=== PATIENT | female | born 2000 | race Two or more races ===

== ENCOUNTER 2023-11-28 18:02 | Emergency (ER) | payer SELFPAY ==
[~2023-11-28] VITALS: Ht 162.6 cm; Wt 65.0 kg
[2023-11-28] MEDS: SODIUM CHLORIDE 0.9% 2,000 ML IV ONE (18:39)
[2023-11-28 18:46] LABS: Basophils # (auto) 0 10 ^3/uL (0-0.2); Basophils % (auto) 0.1 % (0.0-2.0); Eosinophils # (auto) 0.2 10 ^3/uL (0-0.8); Hematocrit 37.7 % (36.0-46.0); Hemoglobin 12.4 g/dL (12.2-16.2); Mean Corpuscular Hgb Conc. 32.8 g/dL (32.0-36.0); Monocytes # (auto) 0.3 10 ^3/uL (0-1.3)
[2023-11-28 18:48] LABS: Eosinophils % (auto) 2.6 % (0.0-7.0); Lymphocytes # (auto) 3.4 10 ^3/uL (0.4-5.4); Lymphocytes % (auto) 49.3 % (10.0-50.0); Mean Corpuscular Hemoglobin 26.2 pg (28.0-32.0); Mean Corpuscular Volume 79.7 fL (80.0-100.0); Monocytes % (auto) 4.7 % (0.0-12.0); Neutrophils % (auto) 43.3 % (37.0-80.0); Nucleated Red Blood Cells % 0.7 %; Red Blood Cells 4.73 10^6/uL (4.0-5.20); White Blood Cell 6.8 10^3/uL (4.4-10.8)
[2023-11-28 19:12] LABS: Alanine Aminotransferase 121 U/L (7-40); Albumin 3.9 g/dL (3.2-4.8); Alkaline Phosphatase 121 U/L (46-116); Anion Gap 10 (5-15); Aspartate Aminotransferase 63 U/L (13-40); BUN/Creatinine Ratio 6.9 (10.0-20.0); Bilirubin, Total 0.6 mg/dL (0.2-1.0); Blood Urea Nitrogen 6 mg/dL (9-23); Calcium 8.8 mg/dL (8.7-10.4); Carbon Dioxide 21 mmol/L (20-30); Chloride 107 mmol/L (98-107); Glucose 94 mg/dL (74-106); Potassium 3.1 mmol/L (3.5-5.1); Sodium 138 mmol/L (136-145); Total Protein 6.6 g/dL (5.7-8.2)
[2023-11-28 20:52] LABS: Amphetamine Screen, Urine Neg (NEGATIVE)
[2023-11-28 20:53] LABS: Barbiturate Scree,Urine Neg (NEGATIVE); Benzodiazephine Screen, Urine Neg (NEGATIVE); Cannabinoid Screen, Urine Neg (NEGATIVE); Cocaine Screen, Urine Neg (NEGATIVE); Opiate Scree,Urine Neg (NEGATIVE); Phencyclidine Screen, Urine Neg (NEGATIVE)
[2023-11-28 21:04] LABS: Urine Bacteria FEW /hpf (None Seen); Urine Blood Negative /uL (Negative); Urine Clarity Clear (Clear); Urine Color Light-Yellow (Yellow); Urine Hyaline Cast FEW /lpf (0 - 2); Urine Mucus FEW (None Seen); Urine Protein, UAD Negative (Negative); Urine Specific Gravity 1.015 (1.001-1.035); Urine Urobilinogen Normal (Negative); Urine WBC 3 /hpf (0 - 5)
[2023-11-28 21:37] VITALS: BP 112/68; PULSE 80; RESP 16; TEMP 98; O2SAT 99
== END 2023-11-28 21:37 | disposition home or self-care (01) ==
LOC: EDBD 18:02 → ER 18:10
DX: R55 Syncope and collapse (principal); R10.2 Pelvic and perineal pain; R79.89 Other specified abnormal findings of blood chemistry
CPT/HCPCS: 36415; 70450; 80053; 80307; 81001; 84702; 85025; 93005; 96360; 96361; 99284; J7030

== ENCOUNTER 2024-11-16 18:21 | Emergency (ER) | payer BC, OTHER ==
[~2024-11-16] VITALS: Ht 154.9 cm; Wt 51.2 kg
[2024-11-16] MEDS: SODIUM CHLORIDE 0.9% 1,000 ML IV ONE (20:30)
[2024-11-16 21:08] LABS: Chloride 102 mmol/L (98-107); Potassium 3.7 mmol/L (3.5-5.1); Sodium 139 mmol/L (136-145)
[2024-11-16 21:09] LABS: Anion Gap 16 (5-15); Carbon Dioxide 21 mmol/L (20-31)
[2024-11-16 21:13] LABS: Hematocrit 41.7 % (36.0-46.0); Hemoglobin 13.6 g/dL (12.2-16.2); Mean Corpuscular Hemoglobin 26.3 pg (28.0-32.0); Mean Corpuscular Volume 80.3 fL (80.0-100.0); Nucleated Red Blood Cells % 0.1 %
[2024-11-16 21:14] LABS: BUN/Creatinine Ratio 8.1 (10.0-20.0)
[2024-11-16 21:31] LABS: Urine Amorphous Crystal FEW /hpf (None Seen); Urine Protein, UAD 1+ (Negative)
[2024-11-16 21:34] LABS: Blood Urea Nitrogen 5 mg/dL (9-23); Calcium 11.0 mg/dL (8.7-10.4); Glucose 64 mg/dL (74-106)
[2024-11-16] MEDS ORDERED: ACET500T58 PO (23:50)
[2024-11-16] MEDS ORDERED: CEPH500C PO (23:50)
--- NOTE | 2024-11-16 23:50 | ED.PDOC ---
[employer] HPI Comments 24-year-old female presents to ER with complaints of nausea/vomiting x4 days. Patient reports that she is currently 11 weeks , A0 and reports that x4 days she has been experiencing nausea/vomiting, intermittent lower back pain and "pink tinge" to urine. Reports that she was seen and evaluated urgent care for her symptoms yesterday and prescribed Zofran that she has been taking with slight relief. Patient presents to ER ambulatory on arrival, with steady gait, in no distress and reports that she has been following up with her OBGYN as directed, denying any known complications with current and denies any current pain. Denies fever, body aches, chills, abdominal/pelvic pain, back/fla nk pain, vaginal bleeding/further changes in urination or any further symptoms/complaints Chief Complaint: Nausea/Vomiting Time Seen by MD: 19:28 Primary Care Provider: UNKNOWN Reviewed Notes: Nurses Notes, Medications, Allergies Allergies: Coded Allergies: NO KNOWN ALLERGIES (Unverified , 11/28/23) Home Meds Active Scripts Acetaminophen (Acetaminophen) 500 Mg Tab, 500 MG PO Q4HPRN, #30 TAB 0 Refills Prov:CIARAN CLEVELAND 11/16/24 Cephalexin Monohydrate (Cephalexin) 500 Mg Cap, 500 MG PO QID for 7 Days, #28 CAP 0 Refills Prov:CIARAN CLEVELAND 11/16/24 Information Source: Patient Past Medical History PAST MEDICAL HISTORY: Denies Surgical History: Denies all surgeries 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 Family History Family History: Unknown Social History Smoker: Non-Smoker Alcohol: Denies ETOH Use Drugs: Denies Drug Use Lives In: Home Constitutional: denies: chills, diaphoresis, fatigue, fever, malaise, sweats, weakness, others EENTM: denies: blurred vision, double vision, ear bleeding, ear discharge, ear drainage, ear pain, ear ringing, eye pain, eye redness, hearing loss, mouth pain, mouth swelling, nasal discharge, nose bleeding, nose congestion, nose pain, photophobia, tearing, throat pain, throat swelling, voice changes, others Respiratory: denies: cough, hemoptysis, orthopnea, SOB at rest, shortness of breath, SOB with excertion, stridor, wheezing, others Cardiovascular: denies: chest pain, dizzy spells, diaphoresis, Dyspnea on exertion, edema, irregular heart beat, left arm pain, lightheadedness, palpi tations, PND, syncope, others Gastrointestinal: reports: others (As stated in HPI) Genitourinary: reports: others (As stated in HPI) Neurological: denies: dizziness, fainting, headache, left sided numbness, left sided weakness, numbness, paresthesia, pre-existing deficit, right sided numbness, right sided weakness, seizure, speech problems, tingling, tremors, weakness, others Musculoskeletal: reports: others (As stated in HPI) Integumetry: denies: bruises, change in color, change in hair/nails, dryness, laceration, lesions, lumps, rash, wounds, others Allergic/Immunocompromised: denies: Difficulty Healing, Frequent Infections, Hives, Itching, others Hematologic/Lymphatic: denies: anemia, blood clots, easy bleeding, easy bruising, swollen glands, others Endocrine: denies: excessive hunger, excessive sweating, excessive thirst, excessive urination, flushing, intolerance to cold, intolerance to heat, un explained weight gain, unexplained weight loss, others Psychiatric: denies: anxiety, bipolar disorder, depression, hopeless, panic disorder, schizophrenia, sleepless, suicidal, others Physical Exam General Appearance: No Apparent Distress HEENT: PERRL/EOMI Neck: Full Range of Motion, Non-Tender, Normal Respiratory: Chest Non-Tender, Lungs Clear, No Accessory Muscle Use, No Respiratory Distress, Normal Breath Sounds Cardiovascular: No Murmur, No Gallop, Regular Rate/Rhythm Breast Exam: Deferred Gastrointestinal: No Organomegaly, Non Tender (NO TTP TO ABDOMEN/PELVIC REGION NOTED), No Pulsatile Mass, Normal Bowel Sounds, Soft Genitalia: Deferred Pelvic: Deferred Rectal: Deferred Extremities: Normal capillary refill, Normal range of motion Musculoskeletal : Extremity Location: Back (No TTP to bilateral flanks or CVA tenderness noted bilaterally. No bony tenderness to spine appreciated) Neurologic: Alert, tobacco grader II-XII nml as Tested, No Motor Deficits, Normal Affect, Normal Mood, No Sensory Deficits Cerebellar Function: Normal Reflexes: Normal Skin: Dry, Normal Color, Warm Peripheral Pulses: 2+ Radial (R), 2+ Radial (L), 2+ Brachial (R), 2+ Brachial (L) Lymphatic: No Adenopathy Was a procedure done? Was a procedure done?: No Sedation Sedation?: No Differential Diagnosis (SMALL BOAT ENGINEER) Vaginal Bleeding: - Incomplete, Ectopic , Trauma, Vaginitis X-Ray, Labs, Meds, VS Vital Signs Date Time Temp Pulse Resp B/P (MAP) Pulse Ox O2 Delivery O2 Flow Rate FiO2 11/17/24 00:00 71 17 98 Room Air 11/17/24 00:00 98.7 71 18 117/73 (88) 98 98.7 11/16/24 20:15 98.2 74 18 112/70 (84) 99 98.2 Lab Test 11/16/24 20:44 11/16/24 20:15 Range/Units White Blood Count 12.2 H 4.4-10.8 10^3/uL Red Blood Count 5.18 4.0-5.20 10^6/uL Hemoglobin 13.6 12.2-16.2 g/dL Hematocrit 41.7 36.0-46.0 % Mean Corpuscular Volume 80.3 80.0-100.0 fL Mean Corpuscular Hemoglobin 26.3 L 28.0-32.0 pg Mean Corpuscular Hemoglobin Concent 32.7 32.0-36.0 g/dL Red Cell Distribution Width 13.3 11.8-14.3 % Platelet Count 257 140-450 10^3/uL Mean Platelet Volume 8.3 6.9-10.8 fL Neutrophils (%) (Auto) 73.4 37.0-80.0 % Lymphocytes (%) (Auto) 22.3 10.0-50.0 % Monocytes (%) (Auto) 3.7 0.0-12.0 % Eosinophils (%) (Auto) 0.3 0.0-7.0 % Basophils (%) (Auto) 0.3 0.0-2.0 % Neutrophils # (Auto) 8.9 H 1.6-8.6 10 ^3/uL Lymphocytes # (Auto) 2.7 0.4-5.4 10 ^3/uL Monocytes # (Auto) 0.4 0-1.3 10 ^3/uL Eosinophils # (Auto) 0 0-0.8 10 ^3/uL Basophils # (Auto) 0 0-0.2 10 ^3/uL Nucleated Red Blood Cells 0.1 % Sodium Level 139 136-145 mmol/L Potassium Level 3.7 3.5-5.1 mmol/L Chloride Level 102 98-107 mmol/L Carbon Dioxide Level 21 20-31 mmol/L Anion Gap 16 H 5-15 Blood Urea Nitrogen 5 L 9-23 mg/dL Creatinine 0.62 0.550-1.02 mg/dL Glomerular Filtration Rate Calc 126 >90 mL/min BUN/Creatinine Ratio 8.1 L 10.0-20.0 Serum Glucose 64 L 74-106 mg/dL Calcium Level 11.0 H 8.7-10.4 mg/dL Urine Color Light-yellow Yellow Urine Clarity Turbid H Clear Urine pH 5.5 5.0-9.0 Urine Specific [place] 1.027 1.001-1.035 Urine Protein 1+ H Negative Urine Ketones 4+ H Negative Urine Blood Negative Negative /uL Urine Nitrite Negative Negative Urine Bilirubin Negative Negative Urine Urobilinogen Normal Negative mg/dL Urine Leukocyte Esterase Trace Negative /uL Urine RBC 1 0 - 4 /hpf Urine Microscopic WBC 4 0-5 /HPF Urine Squamous Epithelial Cells Few <5 /hpf Urine Amorphous Crystals Few None Seen /hpf Urine Bacteria Few H None Seen /hpf Urine Mucus Few None Seen Urine Glucose Normal Normal mg/dL Urine Test Positive Negative Current Medications Medications (Trade) Dose Ordered Sig/Herve Route Start Time Stop Time Status Last Admin Sodium Chloride 1,000 ml @ 1,000 mls/hr Q1H ONCE IV 11/16/24 20:30 11/16/24 21:29 DC 11/17/24 00:00 CBC reviewed-WBC 12.2 BMP reviewed without any significant abnormalities Urinalysis reviewed-urine leukocyte esterase trace, urine blood negative, urine ketones 4+ Urine reviewed-positive Hep-Lock IV ordered NS 1 L IV ordered Patient had improvement in symptoms, tolerating p.o. intake well and denied any pain prior to discharge Diet education discussed Advised to follow up with PCP and OBGYN in 1-2 days Patient verbalized understanding and agreeable with current plan of care Advised to return to ER immediately if symptoms worsen Time of 1ST Reevaluation: 20:00 Reevaluation 1ST: N/A Patient Education/Counseling: Diagnosis, Treatment, Prognosis, Need For Follow Up Family Education/Counseling: No Family Present Departure 1 Departure Time of Disposition: 23:42 Impression: Primary Impression: UTI (urinary tract infection) Qualified Codes: N30.00 - Acute cystitis without hematuria Additional Impressions: Nausea/vomiting in First trimester Disposition: HOME / SELF CARE / HOMELESS Condition: Stable e-Prescriptions Acetaminophen (Acetaminophen) 500 Mg Tab 500 MG PO Q4HPRN, #30 TAB 0 Refills Prov: CIARAN CLEVELAND 11/16/24 Cephalexin Monohydrate (Cephalexin) 500 Mg Cap 500 MG PO QID for 7 Days, #28 CAP 0 Refills Prov: CIARAN CLEVELAND 11/16/24 Discharged With: Self Critical Care Note Critical Care Time?: No Stability Stability form required: No Heart Score Heart Score: Heart Score Response (Comments) Value History N/A 0 EKG N/A 0 Age N/A 0 Risk Factors N/A 0 Troponin N/A 0 Total 0 CIARAN CLEVELAND Nov 16, 2024 23:50
[2024-11-17] VITALS: BP 117/73; PULSE 71; RESP 17; TEMP 98.7; O2SAT 98
== END 2024-11-17 01:24 | disposition home or self-care (01) ==
LOC: ER 18:21
DX: O23.41 Unspecified infection of urinary tract in pregnancy, first trimester (principal); O21.9 Vomiting of pregnancy, unspecified; N39.0 Urinary tract infection, site not specified; Z3A.11 11 weeks gestation of pregnancy
CPT/HCPCS: 36415; 80048; 81001; 81025; 85025; 96360; 99283; J7030

== ENCOUNTER 2024-11-20 08:58 | Inpatient (IN) | payer BC ==
[~2024-11-20] VITALS: Ht 154.9 cm; Wt 44.8 kg
[~2024-11-20 08:58] MED LIST: ACET500T58 PO; CEPH500C PO
--- NOTE | 2024-11-20 09:21 | ECG ---
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
--- NOTE | 2024-11-20 09:46 | ED.PDOC ---
History of Present Illness HPI Comments 24-year-old female presents to the your we will being 12 weeks , A0 and with the chief complaint of nausea and vomiting. Patient was recently in the ER 4 days ago with similar symptoms as today, here is the prior HPI 24-year-old female presents to ER with complaints of nausea/vomiting x4 days. Patient reports that she is currently 11 weeks , A0 and reports that x4 days she has been experiencing nausea/vomiting, intermittent lower back pain and "pink tinge" to urine. Reports that she was seen and evaluated urgent care for her symptoms yesterday and prescribed Zofran that she has been taking with slight relief. Patient presents to ER ambulatory on arrival, with steady gait, in no distress and reports that she has been following up with her OBGYN as directed, denying any known complications with current and denies any current pain. Denies fever, body aches, chills, abdominal/pelvic pain, b ack/flank pain, vaginal bleeding/further changes in urination or any further symptoms/complaints . Patient is still has nausea and vomiting x8 days, but has chest pain with palpitations since this morning. Patient's artificial limb maker is in [place] and currently knows about the patient's symptoms. Denies chills, fever, /D, SOB, CP. No other associated symptoms, modifiers, recent injuries or sick contacts present at this time. Chief Complaint: Nausea/Vomiting Time Seen by MD: 09:30 Primary Care Provider: UNKNOWN Reviewed Notes: Nurses Notes, Medications, Allergies Allergies: Coded Allergies: NO KNOWN ALLERGIES (Unverified , 11/28/23) Home Meds Active Scripts Acetaminophen (Acetaminophen) 500 Mg Tab, 500 MG PO Q4HPRN, #30 TAB 0 Refills Prov:CIARAN CLEVELAND 11/16/24 Cephalexin Monohydrate (Cephalexin) 500 Mg Cap, 500 MG PO QID for 7 Days, #28 CAP 0 Refills Prov:CIARAN CLEVELAND 11/16/24 Information Source: Patient Mode of Arrival: Ambulatory Severity: Moderate Timing: Days Duration: Since onset, Days Prehospital treatment: None Past Medical History PAST MEDICAL HISTORY: Denies Surgical History: Denies all surgeries 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 HELPER Hx Family History Family History: Reviewed,noncontributory to illness, Unknown Social History Smoker: Non-Smoker Alcohol: Denies ETOH Use Drugs: Denies Drug Use Lives In: Home Constitutional: denies: chills, diaphoresis, fatigue, fever, malaise, sweats, weakness, others EENTM: denies: blurred vision, double vision, ear bleeding, ear discharge, ear drainage, ear pain, ear ringing, eye pain, eye redness, hearing loss, mouth pain, mouth swelling, nasal discharge, nose bleeding, nose congestion, nose pain, photophobia, tearing, throat pain, throat swelling, voice changes, others Respiratory: denies: cough, hemoptysis, orthopnea, SOB at rest, shortness of breath, SOB with excertion, stridor, wheezing, others Cardiovascular: reports: chest pain, palpitations; denies: dizzy spells, diaphoresis, Dyspnea on exertion, edema, irregular heart beat, left arm pain, lightheadedness, PND, syncope, others Gastrointestinal: reports: nausea, vomiting; denies: abdomen distended, abdominal pain, blood streaked bowels, constipated, diarrhea, dysphagia, difficulty swallowing, hematemesis, melena, poor appetite, poor fluid intake, rectal bleeding, rectal pain, others Genitourinary: denies: abnormal vagina bleeding, burning, dyspareunia, dysuria, flank pain, frequency, hematuria, incontinence, pain, , vagina discharge, urgency, others Neurological: denies: dizziness, fainting, headache, left sided numbness, left sided weakness, numbness, paresthesia, pre-existing deficit, right sided numbness, right sided weakness, seizure, speech problems, tingling, tremors, weakness, others Musculoskeletal: denies: back pain, gout, joint pain, joint swelling, muscle pa in, muscle stiffness, neck pain, others Integumetry: denies: bruises, change in color, change in hair/nails, dryness, laceration, lesions, lumps, rash, wounds, others Allergic/Immunocompromised: denies: Difficulty Healing, Frequent Infections, Hives, Itching, others Hematologic/Lymphatic: denies: anemia, blood clots, easy bleeding, easy bruising, swollen glands, others Endocrine: denies: excessive hunger, excessive sweating, excessive thirst, excessive urination, flushing, intolerance to cold, intolerance to heat, unexplained weight gain, unexplained weight loss, others Psychiatric: denies: anxiety, bipolar disorder, depression, hopeless, panic disorder, schizophrenia, sleepless, suicidal, others All Other Systems: Reviewed and Negative Physical Exam General Appearance: Mild Distress, Normal HEENT: Normal ENT Inspection, Pharynx Normal, TMs Normal, Other (dry mm) Neck: Full Range of Motion, Non-Tender, Normal, Normal Inspection Respiratory: Chest Non-Tender, Lungs Clear, No Accessory Muscle Use, No Respiratory Distress, Normal Breath Sounds Cardiovascular: No Edema, No JVD, No Murmur, No Gallop, Normal Peripheral Pulses, Tachycardia Breast Exam: Deferred Gastrointestinal: No Organomegaly, Non Tender, No Pulsatile Mass, Normal Bowel Sounds, Soft Genitalia: Deferred Pelvic: Deferred Rectal: Deferred Extremities: No calf tenderness, Normal capillary refill, Normal inspection, Normal range of motion, Non-tender, No pedal edema Musculoskeletal : Apperance: Normal Neurologic: Alert, supervisor yard II-XII nml as Tested, No Motor Deficits, Normal Affect, Normal Mood, No Sensory Deficits Cerebellar Function: Normal Reflexes: Normal Skin: Dry, Normal Color, Warm Lymphatic: No Adenopathy Was a procedure done? Was a procedure done?: No Differential Dx Considerations may include: hyperemesis gravidarum, viral syndrome, CHS, molar , dehydration, electrolyte disorders, renal failure, liver failure, preecclampsia X-Ray, Labs, Meds, VS Vital Signs Date Time Temp Pulse Resp B/P (MAP) Pulse Ox O2 Delivery O2 Flow Rate FiO2 11/20/24 12:01 68 16 98 Room Air 11/20/24 12:01 98.3 68 16 118/74 (89) 98 98.3 11/20/24 09:11 102 11/20/24 09:07 98.9 102 18 110/71 (84) 96 98.9 11/20/24 09:07 98.9 102 18 110/71 (84) 96 98.9 Lab Test 11/20/24 10:24 11/20/24 09:27 11/20/24 09:00 Range/Units Beta HCG, Quantitative 61125.9 H 1.5-4.2 mIU/mL Sodium Level Pending Potassium Level Pending Chloride Level Pending Carbon Dioxide Level Pending Anion Gap Pending Blood Urea Nitrogen Pending Creatinine Pending Glomerular Filtration Rate Calc Pending BUN/Creatinine Ratio Pending Serum Glucose Pending Calcium Level Pending Troponin I High Sensitivity 3 L </=34 ng/L Urine Color Yellow Yellow Urine Clarity Turbid H Clear Urine pH 6.0 5.0-9.0 Urine Specific [place] 1.025 1.001-1.035 Urine Protein 2+ H Negative Urine Ketones 4+ H Negative Urine Blood Negative Negative /uL Urine Nitrite Negative Negative Urine Bilirubin Negative Negative Urine Urobilinogen 2 H Negative mg/dL Urine Leukocyte Esterase Negative Negative /uL Urine RBC 2 0 - 4 /hpf Urine Microscopic WBC 4 0-5 /HPF Urine Squamous Epithelial Cells Mod <5 /hpf Urine Bacteria None seen None Seen /hpf Urine Hyaline Casts Many 0 - 2 /lpf Urine Mucus Few None Seen Urine Glucose Normal Normal mg/dL Urine Opiates Screen Neg NEGATIVE Urine Fentanyl Screen Neg NEGATIVE Urine Barbiturates Screen Neg NEGATIVE Urine Phencyclidine Screen Neg NEGATIVE Urine Amphetamines Screen Neg NEGATIVE Urine Benzodiazepines Screen Neg NEGATIVE Urine Cocaine Screen Neg NEGATIVE Urine Cannabinoids Screen Neg NEGATIVE Current Medications Medications (Trade) Dose Ordered Sig/Herve Route Start Time Stop Time Status Last Admin Sodium Chloride 1,000 ml @ 1,000 mls/hr Q1H ONCE IV 11/20/24 09:45 11/20/24 10:44 DC 11/20/24 09:48 Ondansetron HCl (Zofran) 4 mg ONCE ONCE IV 11/20/24 09:45 11/20/24 09:46 DC 11/20/24 09:48 Time of 1ST Reevaluation: 10:00 Reevaluation 1ST: Unchanged Time of 2ND Reevaluation: 12:07 Reevaluation 2ND: Improved Patient Education/Counseling: Diagnosis, Treatment, Prognosis, Need For Follow Up Family Education/Counseling: No Family Present Comments pt is feeling improved but still unable to keep oral intake down. she has ketosis, and appears clinically dehydrated. she has an IUP<12 weeks. she failed outpatient treatment and will need continual monitoring and hydration. she will be admitted SEPSIS Sepsis Screen Date sepsis recognized/suspect: Nov 20, 2024 Time Sepsis recognized/suspect: 857 Recent Procedure: No On Antibiotic Therapy: No Respiratory Rate >20: No Heart Rate >90: Yes Temp<36 C (96.8 F) or >38.3 C: No SBP <90 or MAP <65 mmHG: No New Acute Mental Status Change: No Is the patient on CPAP, BIPAP,: No Physician Orders Electrocardigram (11/20/24 10:15) Electrocardigram (11/20/24 12:15) Troponin-I Hs (11/20/24 10:15) Troponin-I Hs (11/20/24 12:15) Basic Metabolic Panel (11/20/24 09:36) Ob Ultrasound Comp Less 14wks (11/20/24 09:36) Vital Signs Date Time Temp Pulse Resp B/P (MAP) Pulse Ox O2 Delivery O2 Flow Rate FiO2 11/20/24 12:01 68 16 98 Room Air 11/20/24 12:01 98.3 68 16 118/74 (89) 98 98.3 11/20/24 09:11 102 11/20/24 09:07 98.9 102 18 110/71 (84) 96 98.9 11/20/24 09:07 98.9 102 18 110/71 (84) 96 98.9 Medications Medications Dose Ordered Sig/Herve Route Start Time Stop Time Status Last Admin Dose Admin Ondansetron HCl 4 mg ONCE ONCE IV 11/20/24 09:45 11/20/24 09:46 DC 11/20/24 09:48 Sodium Chloride 1,000 ml @ 1,000 mls/hr Q1H ONCE IV 11/20/24 09:45 11/20/24 10:44 DC 11/20/24 09:48 Departure 1 Departure Time of Disposition: 12:09 Impression: Primary Impression: Hyperemesis gravidarum Additional Impression: Dehydration Disposition: ADMITTED INPATIENT Admit to: Med Surg Condition: Serious Discharged With: Self Critical Care Note Critical Care Time?: Yes (45 min-critical care time only) Critical care comment: Due to concerns for patients condition deteriorating, the care required my highest level of attention and readiness to intervene. I assessed the patient, reviewed the medical records, ordered the appropriate tests and treatments, then reassessed for results and responsiveness. I communicated with medical personnel and consultants and formulated a plan of care. Total critical care time excludes any procedures Stability Stability form required: No I personally scribed for ADINA MAY MD ([email or web address]) on 11/20/24 at 09:46. Electronically submitted by Rodolfo Panda ([email or web address]). ADINA MAY MD Nov 20, 2024 09:46
[2024-11-20] MEDS: SODIUM CHLORIDE 0.9% 1,000 ML IV ONE (09:48)
[2024-11-20] MEDS: ONDANSETRON HCL 4 MG/2 ML VIAL IV ONE (09:48)
--- NOTE | 2024-11-20 10:24 | DVH ---
OB ULTRASOUND <14 WEEKS: HISTORY: Rule out rule out molar . TECHNIQUE: Multiple real-time grayscale sonographic images of the pelvis with duplex Doppler color f low, spectral and M-mode analysis. FINDINGS: The uterus measures 8.9 x 6.4 x 6.3 cm. The cervix is not visualized. Right ovary measures 2.8 x 2.7 x 3.2 cm with normal Doppler color flow Left ovary is not visualized. IUP single live fetus at 11 weeks 4 days average ultrasound age based on mean crown-rump length of 5. 3 cm and gestational sac size of 5.2 cm heart rate detected at 165 beats per minute. Yolk sac not visualized. Amniotic fluid Mirian-gestational space: No free fluid. IMPRESSION: 1. IUP single live fetus 11 weeks 4 days AUA without acute abnormality.
[2024-11-20 10:25] LABS: Urine Protein, UAD 2+ (Negative)
[2024-11-20 10:38] LABS: Cannabinoid Screen, Urine Neg (NEGATIVE)
[2024-11-20 10:42] LABS: Amphetamine Screen, Urine Neg (NEGATIVE); Barbiturate Scree,Urine Neg (NEGATIVE); Benzodiazephine Screen, Urine Neg (NEGATIVE); Cocaine Screen, Urine Neg (NEGATIVE); Opiate Scree,Urine Neg (NEGATIVE); Phencyclidine Screen, Urine Neg (NEGATIVE)
[2024-11-20 12:14] LABS: Chloride 102 mmol/L (98-107)
[2024-11-20 12:15] LABS: Anion Gap 18 (5-15); Potassium 3.5 mmol/L (3.5-5.1); Sodium 135 mmol/L (136-145)
[2024-11-20 12:19] LABS: Calcium 12.2 mg/dL (8.7-10.4); Carbon Dioxide 15 mmol/L (20-31)
[2024-11-20 12:21] LABS: BUN/Creatinine Ratio 7.4 (10.0-20.0); Blood Urea Nitrogen 7 mg/dL (9-23); Glucose 126 mg/dL (74-106)
--- NOTE | 2024-11-20 12:27 | DVHHP2 ---
History of Present Illness Reason for Visit: Hyperemesis gravidarum History of Present Illness The patient is a 24-year-old female 12 weeks 1 para 0 AB 0 who denies past medical history presented to [facility] ED with complaint of intractable nausea and vomiting. Patient was recently in the ER 4 days ago with similar symptoms as today. She was seen and evaluated at urgent care for her symptoms yesterday and prescribed Zofran that she has been taking with slight relief. Patient was seen and evaluated in the ED with unsteady gait, chest pain, palpitations, reports that she has been following up with her OBGYN as directed. Laboratory data shows sodium 135, potassium 3.5, BUN seven, creatinine 0.94, glucose 126, calcium 12.2, troponin 3, blood pressure 118/74, heart rate 68, temperature 98.3 F, O2 saturation 98% on room air. Obstetric ultrasound revealing IUP single live fetus 11 weeks 4 days AUA without acute abnormality. Please see medication orders section in the computer. On my assessment, patient denied chest pain, denies any known complications, no headache, no dizziness, no diaphoresis, no shortness of breath, no diarrhea, no nausea or vomiting at this moment, no fever, no chills. No other modifying factor or other associated signs and symptoms noted. Patient was admitted for further evaluation and medical management. Past Medical History Denies past medical history Past Surgical History Denies all surgeries Family History Reviewed, noncontributory to the management of this case. Past Social History The patient lives at home, denies smoking, alcohol or illicit drugs abuse. Review of Systems Constitutional: No: Fever, Chills, Sweats, Weakness, Malaise, Other Eyes: No: Pain, Vision change, Conjunctivae inflammation, Eyelid inflammation, Other, Redness ENT: No: Ear pain, Ear discharge, Nose pain, Nose discharge, Nose congestion, Mouth pain, Mouth swelling, Throat pain, Throat swelling, Other Respiratory: No: Cough, Dry, Shortness of breath, SOB with excertion, Wheezing, Hemoptysis, Pleuritic Pain, Sputum, Wheezing, Other Cardiovascular: Chest Pain, Palpitations; No: Orthopnea, Paroxysmal Noc. Dyspnea, Edema, Lt Headedness, Other Gastrointestinal: Nausea, Vomiting; No: Abdominal Pain, Diarrhea, Constipation, Melena, Hematochezia, Other Genitourinary: No Dysuria, No Frequency, No Incontinence, No Hematuria, No Retention, No Other Musculoskeletal: No: other, neck pain, shoulder pain, arm pain, back pain, hand pain, leg pain, foot pain Skin: No: Rash, Lesions, Jaundice, Bruising, Other Neurological: No: Weakness, Numbness, Incoordination, Change in speech, Conf usion, Seizures, Other Allergies: Coded Allergies: NO KNOWN ALLERGIES (Unverified , 11/28/23) Medications Current Medications Medications Dose Ordered Sig/Herve Route Start Time Stop Time Status Last Admin Dose Admin Sodium Chloride 1,000 ml @ 60 mls/hr [id number] IV 11/20/24 12:30 Ondansetron HCl 4 mg Q4HP PRN IV 11/20/24 12:30 Docusate Sodium 100 mg BIDPRN PRN PO 11/20/24 12:30 Acetaminophen 500 mg Q6HP PRN PO 11/20/24 12:30 Exam Vital Signs Vital Signs Date Time Temp Pulse Resp B/P (MAP) Pulse Ox O2 Delivery O2 Flow Rate FiO2 11/20/24 12:01 68 16 98 Room Air 11/20/24 12:01 98.3 118/74 (89) 98.3 General Appearance: Alert, Oriented X3, Cooperative, No acute distress HEENT: Atraumatic, PERRLA, EOMI, Mucous membr. moist/pink Respiratory: Clear to auscultation, Normal air movement Cardiovascular: Regular rate, Normal S1, Normal S2, No murmurs Abdominal: Normal bowel sounds, Soft, No tenderness, No hepatospenomegaly, No masses Extremities: No clubbing, No cyanosis, No edema, Normal pulses, No tenderness/swelling Skin: No rashes, No breakdown, No significant lesion Neuro: Normal gait, Normal speech, Strength at 5/5 X4 ext, Normal tone, Sensation intact, Cranial nerves 3-12 NL, Reflexes 2+ Psych/Mental Status: Mental status NL, Mood NL Labs/Xrays Labs Test 11/20/24 10:24 11/20/24 09:27 11/20/24 09:00 Range/Units Beta HCG, Quantitative 95115.9 H 1.5-4.2 mIU/mL Sodium Level 135 L 136-145 mmol/L Potassium Level 3.5 3.5-5.1 mmol/L Chloride Level 102 98-107 mmol/L Carbon Dioxide Level 15 L 20-31 mmol/L Anion Gap 18 H 5-15 Blood Urea Nitrogen 7 L 9-23 mg/dL Creatinine 0.94 # 0.550-1.02 mg/dL Glomerular Filtration Rate Calc 86 >90 mL/min BUN/Creatinine Ratio 7.4 L 10.0-20.0 Serum Glucose 126 H 74-106 mg/dL Calcium Level 12.2 H 8.7-10.4 mg/dL Troponin I High Sensitivity 3 L </=34 ng/L Urine Color Yellow Yellow Urine Clarity Turbid H Clear Urine pH 6.0 5.0-9.0 Urine Specific Welch 1.025 1.001-1.035 Urine Protein 2+ H Negative Urine Ketones 4+ H Negative Urine Blood Negative Negative /uL Urine Nitrite Negative Negative Urine Bilirubin Negative Negative Urine Urobilinogen 2 H Negative mg/dL Urine Leukocyte Esterase Negative Negative /uL Urine RBC 2 0 - 4 /hpf Urine Microscopic WBC 4 0-5 /HPF Urine Squamous Epithelial Cells Mod <5 /hpf Urine Bacteria None seen None Seen /hpf Urine Hyaline Casts Many 0 - 2 /lpf Urine Mucus Few None Seen Urine Glucose Normal Normal mg/dL Urine Opiates Screen Neg NEGATIVE Urine Fentanyl Screen Neg NEGATIVE Urine Barbiturates Screen Neg NEGATIVE Urine Phencyclidine Screen Neg NEGATIVE Urine Amphetamines Screen Neg NEGATIVE Urine Benzodiazepines Screen Neg NEGATIVE Urine Cocaine Screen Neg NEGATIVE Urine Cannabinoids Screen Neg NEGATIVE PATIENT: ENIO BRIAN ACCT: [id number] UNIT: [id number] : 2000 LOC: ER ROOM / BED: / AGE / SEX: 24 / F ADM STATUS: REG ER SERVICE [id number] ORDERING PHYSICIAN: ADINA MAY MD PROCEDURE(s): OB4US - OB ULTRASOUND COMP LESS 14WKS REASON: o ORDER NUMBER(s): [id number], ACCESSION NUMBER(s): [id number] OB ULTRASOUND <14 WEEKS: HISTORY: Rule out rule out molar . TECHNIQUE: Multiple real-time grayscale sonographic images of the pelvis with duplex Doppler color flow, spectral and M-mode analysis. FINDINGS: The uterus measures 8.9 x 6.4 x 6.3 cm. The cervix is not visualized. Right ovary measures 2.8 x 2.7 x 3.2 cm with normal Doppler color flow Left ovary is not visualized. IUP single live fetus at 11 weeks 4 days average ultrasound age based on mean crown-rump length of 5.3 cm and gestational sac size of 5.2 cm heart rate detected at 165 beats per minute. Yolk sac not visualized. Amniotic fluid Mirian-gestational space: No free fluid. IMPRESSION: 1. IUP single live fetus 11 weeks 4 days AUA without acute abnormality. SEPSIS Sepsis Screen Date sepsis recognized/suspect: Nov 20, 2024 Time Sepsis recognized/suspect: 857 Recent Procedure: No On Antibiotic Therapy: No Respiratory Rate >20: No Heart Rate >90: Yes Temp<36 C (96.8 F) or >38.3 C: No SBP <90 or MAP <65 mmHG: No New Acute Mental Status Change: No Is the patient on CPAP, BIPAP,: No Physician Orders Electrocardigram (11/20/24 10:15) Electrocardigram (11/20/24 12:15) Troponin-I Hs (11/20/24 10:15) Troponin-I Hs (11/20/24 12:15) Ob Ultrasound Comp Less 14wks (11/20/24 09:36) * Management Intern Consultation (11/20/24 12:10) Allergies (11/20/24 12:20) Code Status (11/20/24 12:20) Sodium Chloride 0.9% (11/20/24 12:30) Oxygen Per Hour (11/20/24 12:20) Ondansetron Hcl (Zofran) (11/20/24 12:30) Docusate Sodium Capsule (Colace Capsule) (11/20/24 12:30) Fall Risk Precautions In Place QSHIFT (11/20/24 12:20) Complete Blood Count (11/21/24 04:00) Comprehensive Metabolic Panel (11/21/24 04:00) Condition: Serious (11/20/24 12:20) Acetaminophen Tablet (Tylenol Tablet) (11/20/24 12:30) Clear Liq Diet (11/20/24 Lunch) Maintain Bed Rest (11/20/24 12:20) Sequential Compression Device (11/20/24 ) Vital Signs Date Time Temp Pulse Resp B/P (MAP) Pulse Ox O2 Delivery O2 Flow Rate FiO2 11/20/24 12:01 68 16 98 Room Air 11/20/24 12:01 98.3 68 16 118/74 (89) 98 98.3 11/20/24 09:11 102 11/20/24 09:07 98.9 102 18 110/71 (84) 96 98.9 11/20/24 09:07 98.9 102 18 110/71 (84) 96 98.9 Medications Medications Dose Ordered Sig/Herve Route Start Time Stop Time Status Last Admin Dose Admin Ondansetron HCl 4 mg ONCE ONCE IV 11/20/24 09:45 11/20/24 09:46 DC 11/20/24 09:48 4 MG Sodium Chloride 1,000 ml @ 1,000 mls/hr Q1H ONCE IV 11/20/24 09:45 11/20/24 10:44 DC 11/20/24 09:48 1,000 MLS/HR Assessment/Plan Assessment/Plan Hyperemesis gravidarum Dehydration 1st trimester of Plan 1. Admit to telemetry unit 2. Breathing treatment 3. Pain control management 4. Management of fluids and electrolytes 5. Consultation for OBGYN 6. Diagnostic tests obstetric ultrasound 7. DVT prophylaxis-on SCDs 8. Repeat labs CBC, CMP in a.m. 9. Continue with current medical management 10. Treatment plan discussed with patient and RN. Patient verbalized understanding. Plan discussed with: Patient, Other (RN) My Orders Orders - JACINDA HONG DNP Procedure Category Date Status Time Allergies NOBLE 11/20/24 In Process 12:20 Code Status CODE 11/20/24 Transmitted 12:20 Sodium Chloride 0.9% PHA 11/20/24 Logged 12:30 Oxygen Per Hour RT 11/20/24 Transmitted 12:20 Ondansetron Hcl PHA 11/20/24 Logged (Zofran) 12:30 Docusate Sodium PHA 11/20/24 Logged Capsule (Colace 12:30 Fall Risk Precautions NOBLE 11/20/[address] 12:20 Complete Blood Count LAB 11/21/24 Verified 04:00 Comprehensive LAB 11/21/24 Verified Metabolic Panel 04:00 Condition: Serious NOBLE 11/20/24 In Process 12:20 Acetaminophen Tablet PHA 11/20/24 Logged (Tylenol Tablet) 12:30 Clear Liq Diet DIET 11/20/24 Transmitted Lunch Maintain Bed Rest NOBLE 11/20/24 In Process 12:20 Sequential NOBLE 11/20/24 In Process Compression Device Problem List: (1) Hyperemesis gravidarum (2) Dehydration (3) First trimester Date of Service: Nov 20, 2024 Billing Provider: JACINDA HONG DNP Common Visit Codes: [id number] INP/OBS CARE (HIGH) JACINDA HONG DNP Nov 20, 2024 12:27
[2024-11-20] MEDS ORDERED: NITROGLYCERIN 0.4 MG SL TAB SL PRN (12:30)
[2024-11-20] MEDS ORDERED: DOCUSATE SOD 100 MG CAP PO PRN (12:30)
[2024-11-20] MEDS ORDERED: MORPHINE SULFATE INJ 2 MG/ml SYRG IV PRN (12:30)
[2024-11-20] MEDS: SODIUM CHLORIDE 0.9% 1,000 ML IV SCH (12:48)
[2024-11-20 13:45] VITALS: BP 128/76; PULSE 78; PULSE 82; RESP 16; RESP 17; TEMP 98.2; O2SAT 100; O2SAT 98
[2024-11-20 17:26] VITALS: BP 104/68; PULSE 77; RESP 16; TEMP 99.9; O2SAT 100
[2024-11-20 20:28] VITALS: BP 118/68; PULSE 84; RESP 15; TEMP 97.9; O2SAT 100
[2024-11-20 21:11] VITALS: BP 129/91; PULSE 82; RESP 17; TEMP 97.1; O2SAT 100
--- NOTE | 2024-11-20 21:46 | DVHINCON2 ---
Date of service: Nov 20, 2024 Referring Physician ER / Hospitalist Reason for Consultation First Tri Hyperemesis Gravidarum, dehydration , malnutrition History of Present Illness First Tri Past Medical History lnone Past Surgical History none Family History non contributory Social History non contributory Patient Family History: Hypertension G8 MOTHER Allergies: Coded Allergies: NO KNOWN ALLERGIES (Unverified , 11/28/23) Home Meds Active Scripts Acetaminophen (Acetaminophen) 500 Mg Tab, 500 MG PO Q4HPRN, #30 TAB 0 Refills Prov:CIARAN CLEVELAND 11/16/24 Cephalexin Monohydrate (Cephalexin) 500 Mg Cap, 500 MG PO QID for 7 Days, #28 CAP 0 Refills Prov:CIARAN CLEVELAND 11/16/24 Current Medications Current Medications Medications (Trade) Dose Ordered Sig/Herve Route PRN Reason Start Time Stop Time Status Last Admin Sodium Chloride 1,000 ml @ 60 mls/hr [id number] IV 11/20/24 12:30 11/20/24 12:48 Ondansetron HCl (Zofran) 4 mg Q4HP PRN IV NAUSEA / VOMITING 11/20/24 12:30 Docusate Sodium (Colace Capsule) 100 mg BIDPRN PRN PO FOR CONSTIPATION 11/20/24 12:30 Acetaminophen (Tylenol Tablet) 500 mg Q6HP PRN PO PAIN SCALE 1-3 OR TEMP>100.4 11/20/24 12:30 Nitroglycerin (Ntrostat Sublingual) 0.4 mg Q5MINP PRN SL FOR CHEST PAIN 11/20/24 12:30 Morphine Sulfate 2 mg Q30M PRN IV FOR CHEST PAIN 11/20/24 12:30 Review of Systems Constitutional: no fever, chill, weight loss HEENT: no eye pain, no hearing loss, no oral lesion, no scleral icterus Heart: no chest pain, no chest pressure Lung: no cough, no dyspnea with exertion Abdomen: see HPI : no pain with urination, normal appearing urine Musculoskeletal: no joint pain, no muscle pain Neurological: no seizure, no loss of sensation, no weakness in extremities Pysch: no depression, no anxiety Derm: no rash, no jaundice Vital Signs Vital Signs Date Time Temp Pulse Resp B/P (MAP) Pulse Ox O2 Delivery O2 Flow Rate FiO2 11/20/24 20:28 97.9 84 15 118/68 (85) 100 97.9 11/20/24 12:01 Room Air Physical Exam SKIN: lip dry. HEENT: pearla NECK: supple CARDIAC: RRR PULMONARY: CTA ABDOMEN: Soft no peritoneal signs MUSCULOSKELETAL: nl NEURO: aao x3 Labs/Diagnostic Data Labs Test 11/20/24 13:26 11/20/24 10:24 11/20/24 09:27 11/20/24 09:00 Range/Units Troponin I High Sensitivity 4 </=34 ng/L Beta HCG, Quantitative 19542.9 H 1.5-4.2 mIU/mL Sodium Level 135 L 136-145 mmol/L Potassium Level 3.5 3.5-5.1 mmol/L Chloride Level 102 98-107 mmol/L Carbon Dioxide Level 15 L 20-31 mmol/L Anion Gap 18 H 5-15 Blood Urea Nitrogen 7 L 9-23 mg/dL Creatinine 0.94 # 0.550-1.02 mg/dL Glomerular Filtration Rate Calc 86 >90 mL/min BUN/Creatinine Ratio 7.4 L 10.0-20.0 Serum Glucose 126 H 74-106 mg/dL Calcium Level 12.2 H 8.7-10.4 mg/dL Urine Color Yellow Yellow Urine Clarity Turbid H Clear Urine pH 6.0 5.0-9.0 Urine Specific [place] 1.025 1.001-1.035 Urine Protein 2+ H Negative Urine Ketones 4+ H Negative Urine Blood Negative Negative /uL Urine Nitrite Negative Negative Urine Bilirubin Negative Negative Urine Urobilinogen 2 H Negative mg/dL Urine Leukocyte Esterase Negative Negative /uL Urine RBC 2 0 - 4 /hpf Urine Microscopic WBC 4 0-5 /HPF Urine Squamous Epithelial Cells Mod <5 /hpf Urine Bacteria None seen None Seen /hpf Urine Hyaline Casts Many 0 - 2 /lpf Urine Mucus Few None Seen Urine Glucose Normal Normal mg/dL Urine Opiates Screen Neg NEGATIVE Urine Fentanyl Screen Neg NEGATIVE Urine Barbiturates Screen Neg NEGATIVE Urine Phencyclidine Screen Neg NEGATIVE Urine Amphetamines Screen Neg NEGATIVE Urine Benzodiazepines Screen Neg NEGATIVE Urine Cocaine Screen Neg NEGATIVE Urine Cannabinoids Screen Neg NEGATIVE Primary Diagnosis Hyperemeses, dehydration, 11+ wks Plan Recommend NPO 12hrs, Zofran 4 mg q 6hrs scheduled not prn, IV LR 125 /hr continuous. After twelve hrs introduce ice and clear liquids , nibble on saltine crackers as tolerated. As she improves advance diet to bland... Plan discussed with: Patient Date of Service: Nov 20, 2024 Billing Provider: CHRIS LUJAN DO Common Visit Codes: 69488-LIX/OBS DISCH DAY <30MIN Consultation Codes: [id number] CONSULT <35MIN CHRIS LUJAN DO Nov 20, 2024 21:46
[2024-11-20] MEDS: ONDANSETRON HCL 4 MG/2 ML VIAL IV PRN (22:06)
[2024-11-20] MEDS: ACETAMINOPHEN 325 MG TAB PO PRN (22:06)
[2024-11-21] VITALS (8 sets, daily range): BP systolic 106–127; BP diastolic 68–84; PULSE 71–87; RESP 15–17; TEMP 96.8–97.6; O2SAT 93–100
[2024-11-21] MEDS: METOCLOPRAMIDE HCL 5MG/ml INJ 2ml VIAL IV ONE (00:35)
[2024-11-21 06:23] LABS: Hematocrit 36.2 % (36.0-46.0); Hemoglobin 12.4 g/dL (12.2-16.2); Mean Corpuscular Hemoglobin 26.4 pg (28.0-32.0); Mean Corpuscular Volume 77.2 fL (80.0-100.0); Nucleated Red Blood Cells % 0.0 %
[2024-11-21 06:35] LABS: Albumin 4.3 g/dL (3.2-4.8); Alkaline Phosphatase 57 U/L (46-116); Anion Gap 14 (5-15); Calcium 9.0 mg/dL (8.7-10.4); Chloride 106 mmol/L (98-107); Glucose 103 mg/dL (74-106); Sodium 137 mmol/L (136-145); Total Protein 6.5 g/dL (5.7-8.2)
[2024-11-21 06:36] LABS: Bilirubin, Total 1.2 mg/dL (0.2-1.0)
[2024-11-21 06:37] LABS: Alanine Aminotransferase 128 U/L (7-40); BUN/Creatinine Ratio 10.0 (10.0-20.0); Blood Urea Nitrogen < 5 mg/dL (9-23); Carbon Dioxide 17 mmol/L (20-31); Potassium 2.8 mmol/L (3.5-5.1)
[2024-11-21 08:05] LABS: Magnesium 1.9 mg/dL (1.6-2.6)
[2024-11-21] MEDS: POTASSIUM CHL 20MEQ/100ML 100 ML IV SCH (09:26)
[2024-11-21] MEDS: METOCLOPRAMIDE HCL 5MG/ml INJ 2ml VIAL IV PRN (15:38)
[2024-11-21] MEDS: POTASSIUM CHL 20 Meq TABLET PO ONE (15:42)
--- NOTE | 2024-11-21 15:50 | DVHPN2 ---
Chief Complaints Patient reports: No new complaints, Feels better Nursing reports: No new complaints Objective Vitals Vital Signs Date Time Temp Pulse Resp B/P (MAP) Pulse Ox O2 Delivery O2 Flow Rate FiO2 11/21/24 12:48 97.2 84 16 122/83 (96) 100 97.2 11/21/24 08:00 Room Air* 0 21 Medications Current Medications Medications (Trade) Dose Ordered Sig/Herve Route PRN Reason Start Time Stop Time Status Last Admin Metoclopramide HCl (Reglan Injection) 10 mg Q8HPRN PRN IV NAUSEA / VOMITING 11/21/24 10:45 11/21/24 15:38 Others shabnam vag bleeding Studies Laboratory Tests 11/21/24 13:09 11/21/24 05:23 Test 11/21/24 05:23 Range/Units Serum Glucose 103 74-106 mg/dL Ass/Plan Assessment hyperemesis gravidum Plan cont with antiemetics and ivf pt was offered our care services supportive care Visit Coding OBGYN Date of Service: Nov 21, 2024 Billing Provider: RENATE EVANS DO SENIOR SALES ASSISTANT Common Visit Codes: [id number] OBS CARE (HIGH) SENIOR SALES ASSISTANT Consultation Codes: [id number] CONSULT <40MIN RENATE EVANS DO Nov 21, 2024 15:50
[2024-11-22] VITALS (8 sets, daily range): BP systolic 106–118; BP diastolic 64–72; PULSE 55–82; RESP 17–20; TEMP 97.2–100.1; O2SAT 98–100
[2024-11-22] MEDS ORDERED: METO-281 PO (12:09)
--- NOTE | 2024-11-22 13:54 | DVHPN2 ---
Chief Complaints Patient reports: No new complaints, Feels better, Other (some vomiting) Nursing reports: No new complaints Objective Vitals Vital Signs Date Time Temp Pulse Resp B/P (MAP) Pulse Ox O2 Delivery O2 Flow Rate FiO2 11/22/24 13:00 97.4 55 18 113/70 (84) 100 97.4 11/22/24 08:00 Room Air* 0 21 General: Normal Lungs: Normal Cardiovascular: Normal Abdominal: Soft Extremities: Normal Studies Laboratory Tests 11/21/24 13:09 11/21/24 05:23 Test 11/21/24 05:23 Range/Units Serum Glucose 103 74-106 mg/dL Ass/Plan Assessment hyperemesis gravidum still vomiting Plan cont with ivf ,advance diet Visit Coding OBGYN Date of Service: Nov 22, 2024 Billing Provider: RENATE EVANS DO [employer] Common Visit Codes: [id number] INP/OBS CARE(HIGH) [facility] [employer] Consultation Codes: [id number] CONSULT <20MIN, 85362-[id number] CONSULT <55MIN RENATE EVANS DO Nov 22, 2024 13:54
[2024-11-23 01:18] VITALS: BP 110/76; PULSE 71; RESP 16; TEMP 97.2; O2SAT 99
[2024-11-23 05:00] VITALS: BP 103/66; PULSE 74; RESP 20; TEMP 98.3; O2SAT 100
--- NOTE | 2024-11-23 05:05 | DVHPN2 ---
Chief Complaints Patient reports: No new complaints, Feels better, Other (some vomiting) Nursing reports: No new complaints Objective Vitals Vital Signs Date Time Temp Pulse Resp B/P (MAP) Pulse Ox O2 Delivery O2 Flow Rate FiO2 11/23/24 01:18 97.2 71 16 110/76 (87) 99 97.2 11/22/24 20:00 Room Air* 0 21 General: Normal Lungs: Normal Cardiovascular: Normal Abdominal: Soft Extremities: Normal Studies Laboratory Tests 11/21/24 13:09 11/21/24 05:23 Test 11/21/24 05:23 Range/Units Serum Glucose 103 74-106 mg/dL Ass/Plan Assessment hyperemesis gravidum improved Plan dc home fu 1wk with our office Visit Coding OBGYN Date of Service: Nov 23, 2024 Billing Provider: RENATE EVANS DO OPERATION RESEARCH ANALYST Common Visit Codes: [id number] INP/OBS CARE(HIGH) RENATE EVANS DO Nov 23, 2024 05:05
--- NOTE | 2024-11-23 05:06 | DVHDS2 ---
Physician Discharge Progress N Final Diagnosis: hyperemesis gravidum improved dehydration improved Operations or Procedures: Operations or Procedures ivf,iv antiemetics Condition on Discharge: Good Disposition: Home Discharge Instructions: Diet: Regular Activity: No Restrictions, As Tolerated Medications: reglan Follow Up Care: Specialist: 1w Discharge Statement: "Patient was advised to return to the ER or call 911 if any headaches, dizziness, shortness of breath, chest pain, abdominal pain, bleeding, fevers, or worsening of medical condition. Patient was counseled about treatment plan, medications, possible side effects, patientverbalized understanding. All questions were answered to the best of my ability. This discharge took greater then 30 minutes in planning, reviewing documentation, counseling the patient, and discussing with other team members." Visit Coding OBGYN Date of Service: Nov 23, 2024 Billing Provider: RENATE EVANS DO AIRCRAFT ENGINEER Common Visit Codes: [id number] INP/OBS CARE (MOD), 74537-KVK/OBS DISCH DAY >30MIN RENATE EVANS DO Nov 23, 2024 05:06
[2024-11-23] MEDS ORDERED: METO-281 PO (05:07)
[2024-11-23 06:33] LABS: Albumin 3.8 g/dL (3.2-4.8); Alkaline Phosphatase 51 U/L (46-116); Anion Gap 10 (5-15); Calcium 9.3 mg/dL (8.7-10.4); Carbon Dioxide 24 mmol/L (20-31); Chloride 103 mmol/L (98-107); Sodium 137 mmol/L (136-145); Total Protein 5.7 g/dL (5.7-8.2)
[2024-11-23 06:34] LABS: Bilirubin, Total 0.7 mg/dL (0.2-1.0)
[2024-11-23 06:36] LABS: Alanine Aminotransferase 129 U/L (7-40); BUN/Creatinine Ratio 10.6 (10.0-20.0); Blood Urea Nitrogen < 5 mg/dL (9-23)
[2024-11-23 06:39] LABS: Potassium 2.4 mmol/L (3.5-5.1)
[2024-11-23 07:03] LABS: Glucose 82 mg/dL (74-106)
[2024-11-23] MEDS: POTASSIUM CHL 20 Meq TABLET PO SCH (07:13)
[2024-11-23 09:00] VITALS: BP 113/69; PULSE 79; RESP 16; TEMP 98; O2SAT 99
== END 2024-11-23 11:00 | disposition home or self-care (01) | DRG 833 ==
LOC: ER 08:58 → OVERFLOW 12:26 → TELE-CENTR 21:11
PROVIDERS: ADMIT Obstetrics & Gynecology; ATTEND Obstetrics & Gynecology
DX: O21.1 Hyperemesis gravidarum with metabolic disturbance (principal); O99.281 Endocrine, nutritional and metabolic diseases complicating pregnancy, first trimester; Z3A.12 12 weeks gestation of pregnancy
CPT/HCPCS: 36415; 76801; 80048; 80053; 80307; 81001; 83735; 84100; 84132; 84484; 84702; 85025; 86901; 93005; 96361; 96374; 99291; G0378; J2405; J3480

== ENCOUNTER 2024-12-17 09:41 | Emergency (ER) | payer BC ==
[~2024-12-17] VITALS: Ht 154.9 cm; Wt 50.0 kg
[~2024-12-17 09:41] MED LIST changes: +METO-281 PO
--- NOTE | 2024-12-17 10:15 | ED.PDOC ---
GI ASSESSMENT HPI Comments 24 y/o F, presents to the ED for CC of nausea/vomiting. Patient states, she has been experiencing symptoms of nausea and vomiting onset, [id number] ago. Patient reports, that she is approximately x16 weeks . Patient endorses, being seen at [facility] for SS and being prescribed Zofran, Reglan, and suppositories which have provided no relief. Patient denies hematemesis, abdominal pain, abdominal cramping, fever, or diarrhea. No other symptoms or modifying factors present at this time. Chief Complaint: Nausea/Vomiting Time Seen by MD: 10:10 Primary Care Provider: UNKNOWN Reviewed Notes: Nurses Notes, Medications, Allergies Allergies: Coded Allergies: NO KNOWN ALLERGIES (Unverified , 11/28/23) Home Meds Active Scripts Metoclopramide Hcl (Reglan) 10 Mg Tab, 10 MG PO Q8HPRN PRN for 20 Days, #60 TAB Prov:RENATE EVANS DO 11/23/24 Metoclopramide Hcl (Reglan) 10 Mg Tab, 10 MG PO every 8 hours PRN, #30 TAB 1 Refill Prov:KYLER HAIR BSN 11/22/24 Acetaminophen (Acetaminophen) 500 Mg Tab, 500 MG PO Q4HPRN, #30 TAB 0 Refills Prov:CIARAN CLEVELAND 11/16/24 Cephalexin Monohydrate (Cephalexin) 500 Mg Cap, 500 MG PO QID for 7 Days, #28 CAP 0 Refills Prov:CIARAN CLEVELAND 11/16/24 Information Source: Patient Mode of Arrival: Ambulatory Timing: Weeks Duration: Since onset Prehospital treatment: None Quality: None Vomitus: Watery Stool: Normal Severity: Moderate Recent: None Recent Hx of: None Pain Location: None Modifying Factors: Nothing Associated sign and symptoms: Nausea, Vomiting Past Medical History PAST MEDICAL HISTORY: Denies Surgical History: Denies all surgeries NURSING ASSOC History: Denies all NURSING ASSOC Hx Family History Family History: Reviewed,noncontributory to illness, Unknown Social History Smoker: Non-Smoker Alcohol: Denies ETOH Use Drugs: Denies Drug Use Lives In: Home Constitutional: denies: chills, diaphoresis, fatigue, fever, malaise, sweats, weakness, others EENTM: denies: blurred vision, double vision, ear bleeding, ear discharge, ear drainage, ear pain, ear ringing, eye pain, eye redness, hearing loss, mouth pain, mouth swelling, nasal discharge, nose bleeding, nose congestion, nose pain, photophobia, tearing, throat pain, throat swelling, voice changes, others Respiratory: denies: cough, hemoptysis, orthopnea, SOB at rest, shortness of breath, SOB with excertion, stridor, wheezing, others Cardiovascular: denies: chest pain, dizzy spells, diaphoresis, Dyspnea on exertion, edema, irregular heart beat, left arm pain, lightheadedness, palpitations, PND, syncope, others Gastrointestinal: reports: nausea, vomiting; denies: abdomen distended, abdominal pain, blood streaked bowels, constipated, diarrhea, dysphagia, difficulty swallowing, hematemesis, melena, poor appetite, poor fluid intake, rectal bleeding, rectal pain, others Genitourinary: reports: ; denies: abnormal vagina bleeding, burning, dyspareunia, dysuria, flank pain, frequency, hematuria, incontinence, pain, vagina discharge, urgency, others Neurological: denies: dizziness, fainting, headache, left sided numbness, left sided weakness, numbness, paresthesia, pre-existing deficit, right sided numbness, right sided weakness, seizure, speech problems, tingling, tremors, weakness, others Musculoskeletal: denies: back pain, gout, joint pain, joint swelling, muscle pain, muscle stiffness, neck pain, others Integumetry: denies: bruises, change in color, change in hair/nails, dryness, laceration, lesions, lumps, rash, wounds, others Allergic/Immunocompromised: denies: Difficulty Healing, Frequent Infections, Hives, Itching, others Hematologic/Lymphatic: denies: anemia, blood clots, easy bleeding, easy bruising, swollen glands, others Endocrine: denies: excessive hunger, excessive sweating, excessive thirst, excessive urination, flushing, intolerance to cold, intolerance to heat, unexplained weight gain, unexplained weight loss, others Psychiatric: denies: anxiety, bipolar disorder, depression, hopeless, panic disorder, schizophrenia, sleepless, suicidal, others All Other Systems: Reviewed and Negative Physical Exam General Appearance: Moderate Distress HEENT: Normal ENT Inspection, Pharynx Normal, TMs Normal Neck: Full Range of Motion, Non-Tender, Normal, Normal Inspection Respiratory: Chest Non-Tender, Lungs Clear, No Accessory Muscle Use, No Respiratory Distress, Normal Breath Sounds Cardiovascular: No Edema, No JVD, No Murmur, No Gallop, Normal Peripheral Pulses, Regular Rate/Rhythm Breast Exam: Deferred Gastrointestinal: No Organomegaly, Non Tender, No Pulsatile Mass, Normal Bowel Sounds, Soft Genitalia: Deferred Pelvic: Deferred Rectal: Deferred Extremities: No calf tenderness, Normal capillary refill, Normal inspection, Normal range of motion, Non-tender, No pedal edema Musculoskeletal : Apperance: Normal Neurologic: Alert, financial advisor trainee II-XII nml as Tested, No Motor Deficits, Normal Affect, Normal Mood, No Sensory Deficits Cerebellar Function: Normal Reflexes: Normal Skin: Dry, Normal Color, Warm Peripheral Pulses: 3+ Radial (R), 3+ Radial (L) Lymphatic: No Adenopathy Was a procedure done? Was a procedure done?: No GI differential Dx Differential Diagnosis: Constipation, Diverticular disease, Esophagitis, Gastritis/PUD, Gastroenteritis, , Bacterial, Viral X-Ray, Labs, Meds, VS Vital Signs Date Time Temp Pulse Resp B/P (MAP) Pulse Ox O2 Delivery O2 Flow Rate FiO2 12/17/24 12:05 97.3 96 18 125/81 (96) 98 97.3 12/17/24 12:05 96 18 98 Room Air 12/17/24 09:42 97.5 110 16 134/91 98 97.5 Lab Test 12/17/24 11:50 Range/Units Beta HCG, Quantitative 66447.7 H 1.5-4.2 mIU/mL Current Medications Medications (Trade) Dose Ordered Sig/Herve Route Start Time Stop Time Status Last Admin Sodium Chloride 1,000 ml @ 1,000 mls/hr Q1H ONCE IV 12/17/24 11:30 12/17/24 12:29 DC 12/17/24 11:30 Ondansetron HCl (Zofran) 4 mg ONCE ONCE IV 12/17/24 11:30 12/17/24 11:31 DC 12/17/24 12:[address] [address] Ph: [phone] DIAGNOSTIC IMAGING Diagnostic Imaging Report : [id number] Signed PATIENT: ENOI BRIAN ACCT: [id number] UNIT: [id number] : 2000 LOC: ER ROOM / BED: / AGE / SEX: 24 / F ADM STATUS: REG ER SERVICE 1120 ORDERING PHYSICIAN: ADONAY HAUSER MD PROCEDURE(s): OBUS - OB ULTRASOUND COMP GTR 14 WKS REASON: vomiting ORDER NUMBER(s): [id number], ACCESSION NUMBER(s): [id number] LIMITED OB ULTRASOUND > 14 WKS: HISTORY: vomiting TECHNIQUE: Multiple real-time grayscale images of the gravid uterus with duplex Doppler color flow and M-mode spectral analysis. COMPARISON: US OB ULTRASOUND COMP LESS 14WKS on DOS: 11/20/24 FINDINGS: IUP single live fetus at 15 weeks 4 days based on composite averages of the BPD, head circumference, abdominal circumference and femur length. Estimated weight 134.16 grams. heart rate 137 beats per minute. Amniotic fluid is grossly adequate with MVP 2.6 cm Cervix is not visualized. Breech presentation Grade 1 placenta without previa or abruption, in anterior position. IMPRESSION: IUP single live fetus at 15 weeks 4 days AUA corresponding to an JAY of 06/06/2025. ATED BY: VIKASH ARGUELLO DO DICTATED DATE/TIME: 12/17/24 143 SIGNED BY: VIKASH ARGUELLO DO SIGNED DATE/TIME: 12/17/24 143 CC: Patient alert. Complaining of nausea. Vitals stable. Answering questions. Establish intravenous access. Was given fluids. She was just at [facility]. Watched her in the ER for many hours. No sign of any distress. Ultrasound does reveal normal . No urinary symptoms. No bleeding. No leg swelling. No shortness a breath. No chest pain. Explained to the patient. Was told to follow up with her OBGYN. Was told to come back if there is any problem. Time of 1ST Reevaluation: 10:40 Reevaluation 1ST: Unchanged Patient Education/Counseling: Diagnosis, Treatment Family Education/Counseling: No Family Present SEPSIS Sepsis Screen Date sepsis recognized/suspect: Dec 17, 2024 Time Sepsis recognized/suspect: 0945 Recent Procedure: No On Antibiotic Therapy: No Respiratory Rate >20: No Heart Rate >90: Yes Temp<36 C (96.8 F) or >38.3 C: No SBP <90 or MAP <65 mmHG: No New Acute Mental Status Change: No Is the patient on CPAP, BIPAP,: No Physician Orders Ob Ultrasound Comp Gtr 14 Wks (12/17/24 11:20) Vital Signs Date Time Temp Pulse Resp B/P (MAP) Pulse Ox O2 Delivery O2 Flow Rate FiO2 12/17/24 12:05 97.3 96 18 125/81 (96) 98 97.3 12/17/24 12:05 96 18 98 Room Air 12/17/24 09:42 97.5 110 16 134/91 98 97.5 Medications Medications Dose Ordered Sig/Herve Route Start Time Stop Time Status Last Admin Dose Admin Ondansetron HCl 4 mg ONCE ONCE IV 12/17/24 11:30 12/17/24 11:31 DC 12/17/24 12:13 Sodium Chloride 1,000 ml @ 1,000 mls/hr Q1H ONCE IV 12/17/24 11:30 12/17/24 12:29 DC 12/17/24 11:30 Departure 1 Departure Time of Disposition: 15:03 Impression: Primary Impression: Nausea/vomiting in Disposition: 01 HOME / SELF CARE / HOMELESS Condition: Good Discharged With: Self Critical Care Note Critical Care Time?: No Stability Stability form required: No Heart Score Heart Score: Heart Score Response (Comments) Value History N/A 0 EKG N/A 0 Age N/A 0 Risk Factors N/A 0 Troponin N/A 0 Total 0 I personally scribed for ADONAY HAUSER MD ([email or web address]) on 12/17/24 at 10:15. Electronically submitted by Jud Diaz ([facility] [facility]). I personally scribed for ADONAY HAUSER MD ([email or web address]) on 12/17/24 at 10:52. Electronically submitted by Jud Diaz ([employer]). I personally scribed for ADONAY HAUSER MD ([email or web address]) on 12/17/24 at 15:01. Electronically submitted by Jud Diaz ([facility]). ADONAY HAUSER MD Dec 17, 2024 10:15
[2024-12-17] MEDS: SODIUM CHLORIDE 0.9% 1,000 ML IV ONE (11:30)
[2024-12-17] MEDS: ONDANSETRON HCL 4 MG/2 ML VIAL IV ONE (12:13)
--- NOTE | 2024-12-17 14:42 | DVH ---
LIMITED OB ULTRASOUND > 14 WKS: HISTORY: vomiting TECHNIQUE: Multiple real-time grayscale images of the gravid uterus with duplex Doppler color flow an d M-mode spectral analysis. COMPARISON: US OB ULTRASOUND COMP LESS 14WKS on DOS: 11/20/24 FINDINGS: IUP single live fetus at 15 weeks 4 days based on composite averages of the BPD, head circumference, abdominal circumference and femur length. Estimated weight 134.16 grams. heart rate 137 beats per minute. Amniotic fluid is grossly adequate with MVP 2.6 cm Cervix is not visualized. Breech presentation Grade 1 placenta without previa or abruption, in anterior position. IMPRESSION: IUP single live fetus at 15 weeks 4 days AUA corresponding to an JAY of 06/06/2025.
[2024-12-17 16:10] VITALS: BP 128/89; PULSE 86; RESP 12; TEMP 98.2; O2SAT 98
== END 2024-12-17 16:18 | disposition home or self-care (01) ==
LOC: ER 09:41
DX: O21.9 Vomiting of pregnancy, unspecified (principal); Z79.899 Other long term (current) drug therapy; Z3A.15 15 weeks gestation of pregnancy
CPT/HCPCS: 36415; 76805; 84702; 96361; 96374; 99285; J2405; J7030

== ENCOUNTER 2025-01-20 19:12 | Observation (INO) | payer BC, MEDICAID ==
[~2025-01-20] VITALS: Ht 154.9 cm; Wt 50.0 kg
[2025-01-20 19:21] VITALS: BP 131/81; PULSE 72; RESP 16; TEMP 97.8; O2SAT 100
[2025-01-20] MEDS: ONDANSETRON HCL 4 MG/2 ML VIAL IV ONE (21:13)
[2025-01-20] MEDS: D5W/LACTATED RINGERS 1,000 ML IV SCH (21:14)
[2025-01-20 21:18] LABS: Hematocrit 38.3 % (36.0-46.0); Hemoglobin 12.7 g/dL (12.2-16.2); Mean Corpuscular Hemoglobin 27.1 pg (28.0-32.0); Mean Corpuscular Volume 81.7 fL (80.0-100.0); Nucleated Red Blood Cells % 0.0 %
[2025-01-20] MEDS: ONDANSETRON HCL 4 MG/2 ML VIAL ONE (21:23)
[2025-01-20 21:29] LABS: Alanine Aminotransferase 14 U/L (7-40); Alkaline Phosphatase 80 U/L (46-116); Anion Gap 17 (5-15); Calcium 10.0 mg/dL (8.7-10.4); Chloride 103 mmol/L (98-107); Total Protein 8.0 g/dL (5.7-8.2)
[2025-01-20 21:30] LABS: Amphetamine Screen, Urine Neg (NEGATIVE); Barbiturate Scree,Urine Neg (NEGATIVE); Benzodiazephine Screen, Urine Neg (NEGATIVE); Cannabinoid Screen, Urine Neg (NEGATIVE); Cocaine Screen, Urine Neg (NEGATIVE); Opiate Scree,Urine Neg (NEGATIVE); Phencyclidine Screen, Urine Neg (NEGATIVE)
[2025-01-20 21:30] LABS: Albumin 4.9 g/dL (3.2-4.8); BUN/Creatinine Ratio 8.6 (10.0-20.0); Bilirubin, Total 0.8 mg/dL (0.2-1.0); Blood Urea Nitrogen < 5 mg/dL (9-23); Carbon Dioxide 15 mmol/L (20-31); Glucose 115 mg/dL (74-106); Potassium 3.2 mmol/L (3.5-5.1); Sodium 135 mmol/L (136-145)
[2025-01-20 21:36] LABS: Urine Protein, UAD 1+ (Negative)
[2025-01-20] MEDS ORDERED: LACTATED RINGER'S 1,000 ML IV SCH (21:45)
[2025-01-20] MEDS ORDERED: D5W/SOD CHL 0.9%/KCL 40MEQ 1,000 ML IV SCH (21:45)
[2025-01-20] MEDS ORDERED: FAMOTIDINE (10MG/ML) 2ML VL IV ONE (22:15)
[2025-01-20] MEDS ORDERED: POTASSIUM CHL 20 Meq TABLET PO ONE (22:15)
[2025-01-20] MEDS: FAMOTIDINE (10MG/ML) 2ML VL IV ONE (22:18)
[2025-01-20] MEDS ORDERED: METOCLOPRAMIDE HCL 5MG/ml INJ 2ml VIAL ONE (23:57)
[2025-01-20] MEDS: METOCLOPRAMIDE HCL 5MG/ml INJ 2ml VIAL IV ONE (23:58)
[2025-01-21] MEDS: ONDANSETRON HCL 4 MG/2 ML VIAL IV PRN (01:00)
[2025-01-21] MEDS: POTASSIUM CHL 20 Meq TABLET PO ONE (01:03)
--- NOTE | 2025-01-21 01:04 | DVHDS2 ---
Physician Discharge Progress N Final Diagnosis: Nausea and Vomiting in IUP at 21w 0d Operations or Procedures: Operations or Procedures Ms Johnson was brought to [facility] from ER dept. Per report, she was taken to ER via ambulance. States she has persistent nausea and vomiting despite taking Reglan orally every 6 hours. last dose was 2pm. She reports she was admitted here at [facility] in November for 1 week, Pepcid worked for her while admi tted here Was also admitted at [facility] in [place] in December for 1 week O: A&O x3 Appears slightly weak Respiration not labored No CVA tenderness Abdomen palpate soft Gagging from time to time FHT 140bpm with min -mod variability. Unable to maintain due to EGA and patient unable to remain in favorable position for EFM Intermittent FHR check with Doppler remained within normal range throughout patient's stay A: Nausea and Vomiting in P IV hydration Antiemetics IV: Zofran, Reglan Pepcid Labs: CMP, CBC, UA Case discussed with Dr Shultz; agrees with above plan 02:00 Re-assessment Patient states she feels much better than when she first came in and would like to go home States that her mother is here to drive her home. P: Discharge patient home Continue current home medications Advised to follow up with her Obstetric care provider within 1-2days Consultations: Consultations Consulted with Dr. Shultz re next step in managing the nausea and vomiting as patient was already on Reglan and hospitalized twice for same symptoms Condition on Discharge: Stable Disposition: Home Discharge Instructions: Diet: Regular, See Comment Diet comment: Start with clear liquid and advance as tolerated Activity: No Restrictions, As Tolerated Activity comment: Balance activities with rest periods Medications: Continue with Reglan as prescribed by your Ob care provider. Follow Up Care: Discharge Statement: "Patient was advised to return to the ER or call 911 if any headaches, dizziness, shortness of breath, chest pain, abdominal pain, bleeding, fevers, or worsening of medical condition. Patient was counseled about treatment plan, medications, possible side effects, patientverbalized understanding. All questions were answered to the best of my ability. 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
== END 2025-01-21 02:23 | disposition home or self-care (01) ==
LOC: ER 19:12 → EDBD 19:12 → LDRP 20:16
PROVIDERS: ADMIT Obstetrics & Gynecology; ATTEND Obstetrics & Gynecology
DX: O21.2 Late vomiting of pregnancy (principal); Z3A.21 21 weeks gestation of pregnancy; Z98.890 Other specified postprocedural states; Z79.899 Other long term (current) drug therapy
CPT/HCPCS: 36415; 59025; 80053; 80307; 81001; 85025; 94760; 94762; 96361; 96374; 96375; 96376; G0378; J2405; J2765; J3490; 96360